=== PATIENT | male | born 1965 | race Caucasian/White ===

== ENCOUNTER 2018-07-23 22:31 | Inpatient (IN) ==
[2018-07-24 00:14] LABS: Bilirubin,Urine Negative (Negative); Blood,Urine Negative (Negative); Clarity,Urine Clear (Clear); Color,Urine Red (Yellow); Glucose,Urine (UA) >=1000 mg/dL (Normal); Ketones,Urine Negative (Negative); Leukocyte Esterase,Urine Negative (Negative); Nitrite,Urine Negative (Negative); Protein,Urine 30 mg/dL (Neg-Trace); Specific Gravity,Urine > 1.030 (1.010-1.025); Urobilinogen,Urine Normal (Normal)
[2018-07-24 00:16] LABS: Bacteria,Urine None Seen per hpf (None-Few); Hyaline Casts,Urine None Seen per lpf (None-Few); RBC,Urine 0-3 per hpf (0-3); Squamous Epithelial Cell,Urine Few per lpf (None-Few); WBC,Urine 0-3 per hpf (0-3)
[2018-07-24 00:17] LABS: Basophils % 0.2 %; Eosinophils # 0.2 K/mcL (0.0-0.6); Eosinophils % 1.1 %; Hematocrit 41.3 % (37.5-50.1); Hemoglobin 14.1 g/dL (12.9-16.9); Immature Granulocytes % 0.3 % (0-4); Lymphocytes # 2.4 K/mcL (0.6-4.6); Lymphocytes % 16.7 %; Mean Corpuscular HGB Conc 34.1 g/dL (31.6-35.5); Mean Corpuscular Hemoglobin 28.4 pg (28.0-33.3); Mean Corpuscular Volume 83.3 fL (83.0-100.0); Mean Platelet Volume 10.7 fL (9.4-12.4); Monocytes # 0.8 K/mcL (0.0-1.3); Monocytes % 5.3 %; Neutrophils # 10.8 K/mcL (1.6-8.9); Platelet Count 245 K/mcL (140-400); Red Blood Count 4.96 M/mcL (4.19-5.50); Red Cell Distribution Width 13.2 % (11.5-14.5); Segmented Neutrophils % 76.4 %
[2018-07-24] MEDS ORDERED: 0.9 % Sodium Chloride 1,000 ML IVC ONE (00:57)
[2018-07-24] MEDS ORDERED: Ondansetron 4 MG/2 ML VIAL IVP ONE (00:57)
[2018-07-24] MEDS ORDERED: *HR* FentaNYL (PF) 100 MCG/2 ML VIAL IVP ONE (00:57)
--- NOTE | 2018-07-24 01:01 | Emergency Department Note ---
Disposition Clinical Impression: Acute pancreatitis Qualifiers: Pancreatitis type: unspecified pancreatitis type Acute pancreatitis complication: unspecified Qualified Code(s): K85.90 - Acute pancreatitis without necrosis or infection, unspecified Disposition: Admitted As Inpatient Condition: Undetermined Time of Disposition: 03:37 Abdominal Pain HPI - General Chief Complaint: ED Abdominal Pain Stated Complaint: abdominal pain Time Seen by Provider: 07/24/18 00:45 Source: patient Mode of arrival: ambulatory Limitations: no limitations Nursing Notes Reviewed: Yes Vital Signs Reviewed: Yes - History of Present Illness HPI Narrative: 52-year-old male with history of high blood pressure arrives to the emergency department with complaint of epigastric discomfort nausea and vomiting and states that it feels as though a burning sensation at times it is stabbing. It is nonradiating. Patient states he never had anything like this in the past. No previous abdominal surgeries. Patient denies any recent surgeries. Patient denies any chest pain or difficulty breathing. No diarrhea, no melena, hematochezia. Patient is uncomfortable on evaluation. Denies any other complaints at this time. Pain Scale: 6 - Related Data Home Medications Medication Instructions Recorded Confirmed Lisinopril [Zestril] 40 mg PO BID 07/24/18 07/24/18 Metoprolol [Lopressor] 200 mg PO BID 07/24/18 07/24/18 Allergies Allergy/AdvReac Type Severity Reaction Status Date / Time No Known Allergies Allergy Verified 07/23/18 23:47 All systems ED: reviewed and negative except as stated. Constitutional: Denies: fever, chills, weakness ENT ED: Denies: dysphagia Cardiovascular: Denies: chest pain Respiratory: Denies: dyspnea Gastrointestinal: Reports: abdominal pain, nausea, vomiting. Denies: diarrhea, constipation, hematemesis, melena, hematochezia Genitourinary: Denies: urgency, dysuria Musculoskeletal: Denies: back pain Integumentary: Denies: rash Neurological: Denies: headache Abdominal Pain PMH - Past Medical History Medical history: Reports: hypertension Male Surgical History: Reports: non-contributory Psychiatric history: Reports: no psych history - Social History Smoking status: Current every day smoker Alcohol use: Reports: none Drug use: Reports: none Physical Exam - General Limitations: no limitations General appearance: alert, in no apparent distress - Head Head exam: atraumatic, normocephalic, normal inspection - Eye Eye exam: Present: normal appearance, PERRL, EOMI - ENT ENT exam: normal exam, normal oropharynx, mucous membranes moist - Neck Neck exam: Present: normal inspection, full ROM, trachea midline - Chest Chest inspection: Present: normal inspection, symmetric chest wall rise - Respiratory Respiratory exam: Present: normal lung sounds bilaterally - Cardiovascular Cardiovascular exam: Present: normal rhythm, tachycardia, normal heart sounds - Abdominal Exam Abdominal exam: Present: soft, tenderness. Absent: distention, guarding, rebound, rigidity, Du's sign, Rovsing's sign, tenderness at McBurney's Point - Extremities Exam Extremities exam: Present: normal inspection, full ROM. Absent: tenderness, pedal edema - Neurological Exam Neurological exam: Present: alert, oriented X3 - Skin Skin exam: Present: warm, dry, intact, normal color Course Vital Signs Temperature 98.2 F 07/23/18 23:01 Pulse Rate 107 07/23/18 23:01 Respiratory Rate 20 07/23/18 23:01 Blood Pressure 164/105 07/23/18 23:01 O2 Sat by Pulse Oximetry 98 07/23/18 23:01 Temperature 98.2 F 07/23/18 23:01 Pulse Rate 106 07/24/18 02:20 Respiratory Rate 18 07/24/18 02:20 Blood Pressure 193/126 07/24/18 02:20 O2 Sat by Pulse Oximetry 96 07/24/18 02:20 Oxygen Delivery Oxygen Delivery Room Air Abdominal Pain - MDM Narrative Medical decision making narrative: Patient's evaluation in the emergency department demonstrates findings consistent with a pancreatitis. Patient states is never had anything like this in the past. The patient's lipase is greater than [address] scan confirms pancreatitis. No pseudocyst noted. The patient has no previous history of alcohol abuse and states that he does not drink alcohol. The patient denies any previous history of high triglycerides, new medications or history of gallstones. The patient has his nausea and pain controlled at this time. His BISAP score is 1. He will be admitted to the hospital. Patient accepted by Dr. Weston. - Lab Data Lab results reviewed: Yes I reviewed the patient's lab results. Result diagrams: 07/24/18 00:04 07/24/18 00:04 Lab Results 07/24/18 07/24/18 07/24/18 Range/Units 00:00 00:04 00:04 WBC 14.1 H (4.3-11.1) K/mcL RBC 4.96 (4.19-5.50) M/mcL Hgb 14.1 (12.9-16.9) g/dL Hct 41.3 (37.5-50.1) % MCV 83.3 (83.0-100.0) fL MCH 28.4 (28.0-33.3) pg MCHC 34.1 (31.6-35.5) g/dL RDW 13.2 (11.5-14.5) % Plt Count 245 (140-400) K/mcL MPV 10.7 (9.4-12.4) fL Immature Gran % 0.3 (0-4) % Seg Neutrophils % 76.4 % Lymphocytes % 16.7 % Monocytes % 5.3 % Eosinophils % 1.1 % Basophils % 0.2 % Neutrophils # 10.8 H (1.6-8.9) K/mcL Lymphocytes # 2.4 (0.6-4.6) K/mcL Monocytes # 0.8 (0.0-1.3) K/mcL Eosinophils # 0.2 (0.0-0.6) K/mcL Basophils # 0.0 (0.0-0.2) K/mcL Sodium 134 L (136-145) mEq/L Potassium 3.9 (3.5-5.1) mEq/L Chloride 100 (98-107) mEq/L Carbon Dioxide 25 (23-29) mEq/L BUN 12 (6-20) mg/dL Creatinine 0.98 (0.70-1.30) mg/dL Est GFR ( Amer) > 60 (> 60) Est GFR (Non-Af Amer) > 60 (> 60) BUN/Creatinine Ratio 12 (6-26) Glucose 256 H (70-105) mg/dL Calculated Osmolality 287 (280-300) Calcium 9.4 (8.6-10.3) mg/dL Total Bilirubin 0.5 (0.3-1.0) mg/dL Direct Bilirubin 0.1 (0.0-0.2) mg/dL Indirect Bilirubin 0.4 (0.0-1.2) mg/dL AST 16 (13-39) Units/L ALT 21 (7-52) Units/L Alkaline Phosphatase 64 (34-104) Units/L Serum Total Protein 7.6 (6.4-8.9) g/dL Albumin 3.9 (3.5-5.7) g/dL Globulin 3.7 H (2.4-3.5) g/dL Albumin/Globulin Ratio 1.1 (1.1-2.2) Amylase 275 H (29-103) Units/L Lipase > 1800 H (11-82) Units/L Urine Color Red A (Yellow) Urine Clarity Clear (Clear) Urine pH 6.0 (5.0-8.0) pH Units Ur Specific Omega > 1.030 H (1.010-1.025) Urine Protein 30 H (Neg-Trace) mg/dL Urine Glucose (UA) >=1000 H (Normal) mg/dL Urine Ketones Negative (Negative) mg/dL Urine Blood Negative (Negative) Urine Nitrite Negative (Negative) Urine Bilirubin Negative (Negative) Urine Urobilinogen Normal (Normal) mg/dL Ur Leukocyte Esterase Negative (Negative) Urine Microscopic RBC 0-3 (0-3) per hpf Urine Microscopic WBC 0-3 (0-3) per hpf Ur Squamous Epith Cells Few (None-Few) per lpf Urine Bacteria None Seen (None-Few) per hpf Hyaline Casts None Seen (None-Few) per lpf Ur Culture Indicated? NO (NO) - Radiology Data Radiology results reviewed: Yes I reviewed the patient's radiology results. Abdomen/Pelvis CT 07/24/18 00:57 IMPRESSION: Mild diffuse inflammation surrounding the pancreas which is enlarged. These changes are compatible with acute pancreatitis. No pseudocyst is identified Small nonobstructive left renal calculus D/ / Kyler Otero MD / Kyler Otero MD Interpreting Provider: Kyler Otero MD Attestation Statement - Attestation Attestation: Dr. Anna note: Patient was seen in conjunction with resident Dr. Giacomo Salmon, please see his charting for complete documentation. Assessment [id number] time with the patient and agree with patient's treatment and disposition. Pain for [address] scan results reviewed. Denies alcoholism
[2018-07-24 01:19] LABS: Alanine Aminotransferase 21 Units/L (7-52); Albumin 3.9 g/dL (3.5-5.7); Albumin/Globulin Ratio 1.1 (1.1-2.2); Alkaline Phosphatase 64 Units/L (34-104); Amylase 275 Units/L (29-103); Aspartate Amino Transferase 16 Units/L (13-39); BUN/Creatinine Ratio 12 (6-26); Bilirubin,Direct 0.1 mg/dL (0.0-0.2); Bilirubin,Indirect 0.4 mg/dL (0.0-1.2); Bilirubin,Total 0.5 mg/dL (0.3-1.0); Blood Urea Nitrogen 12 mg/dL (6-20); Calcium 9.4 mg/dL (8.6-10.3); Carbon Dioxide 25 mEq/L (23-29); Chloride 100 mEq/L (98-107); Globulin 3.7 g/dL (2.4-3.5); Glucose 256 mg/dL (70-105); Lipase > 1800 Units/L (11-82); Osmolality,Calculated 287 (280-300); Potassium 3.9 mEq/L (3.5-5.1); Sodium 134 mEq/L (136-145); Total Protein 7.6 g/dL (6.4-8.9); eGFR For Non-African Americans > 60 (> 60)
[2018-07-24] MEDS ORDERED: *HR* FentaNYL (PF) 100 MCG/2 ML VIAL IVP PRN (04:28)
[2018-07-24] MEDS: *HR* Promethazine 25 MG/ML VIAL IVP PRN ×2 (04:42→22:29)
[2018-07-24] MEDS: Pantoprazole 40 MG VIAL IVP SCH ×2 (04:48→17:21)
--- NOTE | 2018-07-24 08:07 | Internal Med History&Physical ---
Date of Encounter: 07/24/18 Time of Encounter: 11:00 Internal Medicine - H&P: HPI Chief complaint: epigastric pain History of present illness: Mr. Decker is a 52 year old male pmhx htn , tobacco dependence who presented to ED with epigastric pain, n,v. Lipase >1800, CT scan with acute pancreatitis. I attempted numerous times to see him this morning but he was gone for imaging and in the shower. awake, pleasant, pain well controlled, overall nausea and pain improved with meds. bp at bedside 130/80. no chow, vision changes, cp, pressure sob or palpitations. epigastric pain currently mild and improved with nothing to eat/drink and meds. He denies etoh use, abnormal lipid panels in past, no new meds and no history of gallstones. discussed lab and imaging results with him. all questioned answered. GI will see him in consult for HM and steatosis in setting of acute pancreatitis uk etiology. gen- no weight changes, nightsweats, fevers or chills resp- no sob, cough, wheeing, orthopnea, pnd cv- no cp, pressure palpitations, presyncope, syncope, le edema Past Med Surg Social Fam HX - Past Medical History Medical history: hypertension Psychiatric history: no psych history - Past Surgical History Surgical History: non-contributory Additional surgical history: reviewed and non contributory - Social History Smoking Status: Current every day smoker Smokeless Tobacco Status: No Alcohol use: none Drug use: none - Additional Family History Additional family history: reviewed and non contributory Internal Medicine - H&P: Meds Lisinopril [Zestril] 40 mg PO BID 07/24/18 [History] Metoprolol [Lopressor] 200 mg PO BID 07/24/18 [History] Allergy/AdvReac Type Severity Reaction Status Date / Time No Known Allergies Allergy Verified 07/23/18 23:47 All Systems PM: A 10-system review of systems was performed and is negative for pertinent findings except as documented above in the HPI. - Constitutional Vitals: Temp Pulse Resp BP Pulse Ox 98.4 F 102 20 193/123 96 07/24/18 07:30 07/24/18 07:30 07/24/18 07:30 07/24/18 07:30 07/24/18 07:30 Exam: General: awake, alert, appears stated age, obese HEENT:EOM intact, pupils equal, round, no scleral icterus, moist mucus membranes Neck: supple, trachea midline Cardiovascular:regular rate and rhythm, normal S1 & S2, no rubs, murmurs or gallops. No JVD. no lower extremity edema Lungs:Normal breath sounds, no wheezes, or crackles. Normal respiratory effort on ra Abdomen:Soft, non-tender, non-distended, no rigidity, + bowel sounds Neurological: AAOx3, CN grossly intact Skin:Normal color, no rash, no pallor, no jaundice Internal Med - H&P Results - Labs CBC & Chem 7: 07/24/18 08:50 07/24/18 08:50 Labs: Short CBC 07/24/18 Range/Units 00:04 WBC 14.1 H (4.3-11.1) K/mcL Hgb 14.1 (12.9-16.9) g/dL Hct 41.3 (37.5-50.1) % Plt Count 245 (140-400) K/mcL Neutrophils # 10.8 H (1.6-8.9) K/mcL BMP 07/24/18 00:04 Sodium 134 L Potassium 3.9 Chloride 100 Carbon Dioxide 25 BUN 12 Creatinine 0.98 Glucose 256 H Calcium 9.4 Liver Function 07/24/18 Range/Units 00:04 Total Bilirubin 0.5 (0.3-1.0) mg/dL Direct Bilirubin 0.1 (0.0-0.2) mg/dL AST 16 (13-39) Units/L ALT 21 (7-52) Units/L Alkaline Phosphatase 64 (34-104) Units/L Albumin 3.9 (3.5-5.7) g/dL Urine 07/24/18 Range/Units 00:00 Urine Color Red A (Yellow) Urine Clarity Clear (Clear) Urine pH 6.0 (5.0-8.0) pH Units Ur Specific [place] > 1.030 H (1.010-1.025) Urine Protein 30 H (Neg-Trace) mg/dL Urine Glucose (UA) >=1000 H (Normal) mg/dL - Impressions ITS Impressions Abdomen/Pelvis CT 07/24/18 00:57 IMPRESSION: Mild diffuse inflammation surrounding the pancreas which is enlarged. These changes are compatible with acute pancreatitis. No pseudocyst is identified Small nonobstructive left renal calculus D/ / Kyler Otero MD / Kyler Otero MD Interpreting Provider: Kyler Otero MD - Assessment and Plan (1) Acute pancreatitis Current Visit: Yes Status: Acute Assessment and plan: First episode pancreatitis Denies etoh use, new meds, gallstone history or high triglycerides CT a/p with acute pancreatitis no pseudocyst, no necrosis noted -IVF boluses in addition to 1L given in ED -then MIVF -keep npo -prn pain medication IV, prn anti emetics -check RUQ US--HM and steatosis ducts normal no stones - lipids, etoh level--unremarkable -trend amylase/lipase -gi consulted Qualifiers: Pancreatitis type: unspecified pancreatitis type Acute pancreatitis complication: no infection or necrosis Qualified Code(s): K85.90 - Acute pancreatitis without necrosis or infection, unspecified (2) Hypertension Current Visit: Yes Status: Acute Assessment and plan: Uncontrolled here, likely confounded by pain Home oral meds are lopressor 200 mg BID and Lisinopril 40 mg BID -anticipate will have hard time controlling BP with pain and high rate fluids -begin with IV lopressor 5 mg q 8h with close monitoring, IV pain control, may need to add additional prn IV anti hypertensive -will require fu with pcp on dc Qualifiers: Hypertension type: essential hypertension Qualified Code(s): I10 - Essential (primary) hypertension (3) Leukocytosis Current Visit: Yes Status: Acute Assessment and plan: WBC [address] A/P with pancreatitis and no other infectious etiology noted for abd pain, n/v May be stress reaction -check UA, CXR elizabeth given emesis, if develops fever will check bl cxs -cont to monitor wbc and for fevers Qualifiers: Leukocytosis type: unspecified Qualified Code(s): D72.829 - Elevated white blood cell count, unspecified (4) Tachycardia Current Visit: Yes Status: Acute Assessment and plan: Sinus tachycardia likely related to pain, intermittent, currently resolved EKG with NSR, tWI III and Avf, no prior to compare -cont lopressor as above and IVF and pain control, monitor electrolytes -given elevated BPs and TWIs on ekg will trend trops, pt without cp, pressure, sob or palpitations -cont tele (5) Tobacco dependence Current Visit: Yes Status: Acute Assessment and plan: cessation education patch as needed (6) Hyperglycemia Current Visit: Yes Status: Acute Assessment and plan: No history of DM Likely related to pancreatitis -check A1C--8.1 SSI and accu checks, prn hypoglycemics -diet and lifestyle modification education provided, will need pcp fu (7) Morbid obesity with BMI of 40.0-44.9, adult Current Visit: Yes Status: Acute Assessment and plan: diet and lifestyle modifications - Time Spent With Patient Total time spent is greater than 50% in coordination of care (as documented) at patient's floor/unit and/or counseling patient: Greater than 35 minutes
[2018-07-24] MEDS ORDERED: Ringers Solution, Lactated 1,000 ML IVC ONE ×2 (08:14→08:15)
[2018-07-24] MEDS ORDERED: Naloxone 0.4 MG/ML INJ IVP PRN (08:26)
[2018-07-24] MEDS ORDERED: *HR* Dextrose 50 % in Water (Syg) 50 ML SYRINGE IVP PRN (08:27)
[2018-07-24] MEDS ORDERED: Dextrose Gel 15 GM/37.5 ML TUBE PO PRN ×2 (08:27)
[2018-07-24] MEDS ORDERED: D5% in Water 1,000 ML IVC PRN (08:27)
[2018-07-24] MEDS: 0.9 % Sodium Chloride 1,000 ML IVC SCH ×3 (08:39→23:43)
[2018-07-24] MEDS: *HR* Metoprolol 5 MG/5 ML VIAL IVP SCH ×3 (08:53→23:40)
[2018-07-24 09:04] LABS: Basophils % 0.2 %; Eosinophils # 0.1 K/mcL (0.0-0.6); Eosinophils % 0.8 %; Hematocrit 39.6 % (37.5-50.1); Hemoglobin 13.2 g/dL (12.9-16.9); Immature Granulocytes % 0.3 % (0-4); Lymphocytes # 2.2 K/mcL (0.6-4.6); Lymphocytes % 16.1 %; Mean Corpuscular HGB Conc 33.3 g/dL (31.6-35.5); Mean Corpuscular Hemoglobin 28.3 pg (28.0-33.3); Mean Platelet Volume 10.6 fL (9.4-12.4); Monocytes # 0.8 K/mcL (0.0-1.3); Monocytes % 5.8 %; Neutrophils # 10.4 K/mcL (1.6-8.9); Platelet Count 230 K/mcL (140-400); Red Blood Count 4.66 M/mcL (4.19-5.50); Red Cell Distribution Width 13.2 % (11.5-14.5); Segmented Neutrophils % 76.8 %
[2018-07-24 09:17] LABS: Estimated Average Glucose 186 mg/dl; Hemoglobin A1C 8.1 %
[2018-07-24] MEDS: *HR* FentaNYL (PF) 100 MCG/2 ML VIAL IVP PRN ×2 (10:00→20:59)
[2018-07-24] MEDS: *HR* Heparin 5,000 UNIT/ML VIAL SQ SCH ×3 (10:05→22:30)
[2018-07-24 10:07] LABS: Alanine Aminotransferase 19 Units/L (7-52); Albumin 3.7 g/dL (3.5-5.7); Albumin/Globulin Ratio 1.1 (1.1-2.2); Alkaline Phosphatase 61 Units/L (34-104); Aspartate Amino Transferase 14 Units/L (13-39); BUN/Creatinine Ratio 12 (6-26); Bilirubin,Total 0.5 mg/dL (0.3-1.0); Blood Urea Nitrogen 11 mg/dL (6-20); Carbon Dioxide 25 mEq/L (23-29); Chloride 103 mEq/L (98-107); Chol/HDL Ratio 4.6 (0-4.9); Cholesterol 119 mg/dL (< 200); Globulin 3.3 g/dL (2.4-3.5); Glucose 194 mg/dL (70-105); HDL Cholesterol 26 mg/dL (40-59); LDL Cholesterol,Calculated 73 mg/dL (0-99); Lipase > 1800 Units/L (11-82); Osmolality,Calculated 289 (280-300); Potassium 4.1 mEq/L (3.5-5.1); Sodium 137 mEq/L (136-145); Triglycerides 98 mg/dL (< 150); eGFR For Non-African Americans > 60 (> 60)
--- NOTE | 2018-07-24 12:12 | Gastroenterology Consult Note ---
<Lia Guido - Last Filed: 07/24/18 12:09> Date of Encounter: 07/24/18 Time of Encounter: 11:50 - Assessment and plan (1) Acute pancreatitis Current Visit: Yes Status: Acute Assessment and plan: Pt presents with acute pancreatitis. He denies any prior episodes in the past, he denies alcohol intake. US is negative for gallstones or CBD dilation. Will order workup to rule out autoimmune pancreatitis. Qualifiers: Pancreatitis type: unspecified pancreatitis type Acute pancreatitis complication: no infection or necrosis Qualified Code(s): K85.90 - Acute pancreatitis without necrosis or infection, unspecified (2) Hepatic steatosis Current Visit: Yes Status: Acute Assessment and plan: Us shows fatty liver, likely due to obesity. Will order lab workup, can follow up as an outpatient. (3) Morbid obesity with BMI of 40.0-44.9, adult Current Visit: Yes Status: Acute - Time Spent With Patient Total time spent is greater than 50% in coordination of care (as documented) at patient's floor/unit and/or counseling patient: GI History of Present Illness - Data of Consult Patient: new to practice Consult date: 07/24/18 Requesting Physician: Tacos Weston MD - Consult Narrative Reason for consult: acute pancreatitis History of present illness: Mr. Decker is a 52 year old male pmhx htn , and tobacco dependence who presented to ED with epigastric pain, nausea and vomiting. He admits to epigastric pain for the past 3-4 days. Nausea and vomiting worse after he eats. He reports frequent loose stools which is normal for him. He denies any melena or hem atochezia. He reports family history of father with pancreatitis. Lipase >1800, CT scan with acute pancreatitis. He denies etoh use, abnormal lipid panels in past, no new meds and no history of gallstones. procedures: denies anticoagulants: denies nsaids: asa 81 mg daily Past Med Surg Social Fam HX - Past Medical History Medical history: hypertension Psychiatric history: no psych history - Past Surgical History Surgical History: non-contributory Additional surgical history: reviewed and non contributory - Social History Smoking Status: Current every day smoker Smokeless Tobacco Status: No Alcohol use: none Drug use: none Review of Systems: GI: as per INAJA GENERAL: denies fever, has some chills EYES: denies yellow discoloration ENT: denies pain with swallowing or difficulty swallowing CARDIO: denies chest pain, palpitations RESP: No Shortness of breath with exertion : denies change in color of urine NEURO: denies any weakness HEME: Denies any bruising MS: denies joint pain, joint swelling or back pain. DERM: denies rash or itching PSYCH: Denies history of anxiety or depression - Constitutional Vitals: Temp Pulse Resp BP Pulse Ox 98.0 F 96 18 130/80 97 07/24/18 12:01 07/24/18 12:01 07/24/18 12:01 07/24/18 12:01 07/24/18 12:01 Exam: CONSTITUTIONAL:alert, no acute distress.HEAD:normocephalic.EYES:no jaundice.NECK:no obvious swelling.HEART:regular rate and rhythm, no murmurs.LUNGS:bilateral good air entry.ABDOMEN:non distended, soft, tender to epigastric area, no masses palpable, no organomegaly.RECTAL EXAM:Deferred.EXTREMITIES:no clubbing, cyanosis or edema, obese.SKIN:no stigmata of chronic liver disease.NEUROLOGIC:no obvious focal defect. Results - Labs CBC & Chem 7: 07/24/18 08:50 07/24/18 08:50 Labs: Last Result Calcium 9.0 mg/dL (8.6-10.3) 07/24/18 08:50 Triglycerides 98 mg/dL (< 150) 07/24/18 08:50 Entire Visit Hgb 13.2 g/dL (12.9-16.9) 07/24/18 08:50 Hct 39.6 % (37.5-50.1) 07/24/18 08:50 Total Bilirubin 0.5 mg/dL (0.3-1.0) 07/24/18 08:50 AST 14 Units/L (13-39) 07/24/18 08:50 ALT 19 Units/L (7-52) 07/24/18 08:50 Amylase 249 Units/L (29-103) H 07/24/18 08:50 Lipase > 1800 Units/L (11-82) H 07/24/18 08:50 - Impressions Impressions Abdomen/Pelvis CT 07/24/18 00:57 IMPRESSION: Mild diffuse inflammation surrounding the pancreas which is enlarged. These changes are compatible with acute pancreatitis. No pseudocyst is identified Small nonobstructive left renal calculus D/ / Kyler Otero MD / Kyler Otero MD Interpreting Provider: Kyler Otero MD Chest X-Ray 07/24/18 08:23 IMPRESSION: No acute cardiopulmonary process. D/ / Pollo Cote MD / Pollo Cote MD Interpreting Provider: Pollo Cote MD Liver Ultrasound 07/24/18 09:00 IMPRESSION: 1. No cholelithiasis. Normal common bile duct measuring 3 mm. 2. Hepatomegaly with steatosis. D/ / 07/24/2018 09:58:47 Ania Cervantes MD / ty Interpreting Provider: Ania Cervantes MD Consult Discharge Plan - Plan Referrals: NONE,PCP [Primary Care Provider] - <Caleb Ly - Last Filed: 07/24/18 14:22> Date of Encounter: 07/24/18 Time of Encounter: 13:00 - Time Spent With Patient Total time spent is greater than 50% in coordination of care (as documented) at patient's floor/unit and/or counseling patient: GI History of Present Illness - Data of Consult Requesting Physician: Tacos Weston MD - Consult Narrative History of present illness: Mr. Decker is a 52 year old male - Constitutional Vitals: Temp Pulse Resp BP Pulse Ox 98.0 F 96 18 130/80 97 07/24/18 12:01 07/24/18 12:01 07/24/18 12:01 07/24/18 12:01 07/24/18 12:01 Results - Labs CBC & Chem 7: 07/24/18 08:50 07/24/18 08:50 Labs: Last Result Calcium 9.0 mg/dL (8.6-10.3) 07/24/18 08:50 Iron 31 mcg/dL (65-175) L 07/24/18 12:37 % Saturation 9 % (20-55) L 07/24/18 12:37 Transferrin 243 mg/dL (203-362) 07/24/18 12:37 Ferritin 187 ng/mL (20-250) 07/24/18 12:37 Troponin I 0.03 ng/mL (< 0.04) 07/24/18 12:37 Triglycerides 98 mg/dL (< 150) 07/24/18 08:50 Entire Visit Hgb 13.2 g/dL (12.9-16.9) 07/24/18 08:50 Hct 39.6 % (37.5-50.1) 07/24/18 08:50 PT 13.5 Seconds (9.4-12.1) H 07/24/18 12:37 Ferritin 187 ng/mL (20-250) 07/24/18 12:37 Total Bilirubin 0.5 mg/dL (0.3-1.0) 07/24/18 08:50 AST 14 Units/L (13-39) 07/24/18 08:50 ALT 19 Units/L (7-52) 07/24/18 08:50 Amylase 249 Units/L (29-103) H 07/24/18 08:50 Lipase > 1800 Units/L (11-82) H 07/24/18 08:50 - ABG ABG results: PT/INR, D-dimer PT 13.5 Seconds (9.4-12.1) H 07/24/18 12:37 - Impressions Impressions Abdomen/Pelvis CT 07/24/18 00:57 IMPRESSION: Mild diffuse inflammation surrounding the pancreas which is enlarged. These changes are compatible with acute pancreatitis. No pseudocyst is identified Small nonobstructive left renal calculus D/ / Kyler Otero MD / Kyler Otero MD Interpreting Provider: Kyler Otero MD Chest X-Ray 07/24/18 08:23 IMPRESSION: No acute cardiopulmonary process. D/ / Pollo Cote MD / Pollo Cote MD Interpreting Provider: Pollo Cote MD Liver Ultrasound 07/24/18 09:00 IMPRESSION: 1. No cholelithiasis. Normal common bile duct measuring 3 mm. 2. Hepatomegaly with steatosis. D/ / 07/24/2018 09:58:47 Ania Cervantes MD / [facility] Interpreting Provider: Ania Cervantes MD - Attending Attestation I have personally performed a face to face evaluation on this patient. I have reviewed and agree with the care plan. History and Exam by me shows: Patient seen per patient his abdominal pain is better now. On examination: Mild epigastric tenderness. Assessment: Patient with acute pancreatitis no history of drinking. GB ultrasound is negative. Rec: A full and pain management will check his triglyceride calcium and the IgG 4
[2018-07-24 13:29] LABS: Troponin I 0.03 ng/mL (< 0.04)
[2018-07-24 13:35] LABS: INR 1.2; Prothrombin Time 13.5 Seconds (9.4-12.1)
[2018-07-24 13:41] LABS: Hepatitis B Surface Antigen Nonreactive (Nonreactive)
[2018-07-24 14:10] LABS: Hepatitis A Antibody IgM Nonreactive (Nonreactive); Hepatitis B Core IgM Nonreactive (Nonreactive); Hepatitis C Virus Antibody Nonreactive (Nonreactive)
[2018-07-24] MEDS: Insulin LISPRO 300 UNITS/3 ML VIAL SQ SCH ×3 (14:44→23:35)
[2018-07-25] MEDS: Pantoprazole 40 MG VIAL IVP SCH ×2 (05:22→16:54)
[2018-07-25] MEDS: *HR* Heparin 5,000 UNIT/ML VIAL SQ SCH ×3 (05:25→21:16)
[2018-07-25] MEDS: Insulin LISPRO 300 UNITS/3 ML VIAL SQ SCH ×3 (06:23→16:39)
[2018-07-25] MEDS: *HR* Metoprolol 5 MG/5 ML VIAL IVP SCH (07:44)
[2018-07-25] MEDS: Loperamide 1 MG/5 ML UDC PO PRN ×2 (07:44→21:16)
[2018-07-25 08:32] LABS: Basophils % 0.2 %; Eosinophils # 0.2 K/mcL (0.0-0.6); Eosinophils % 1.5 %; Hematocrit 40.2 % (37.5-50.1); Hemoglobin 13.3 g/dL (12.9-16.9); Immature Granulocytes % 0.4 % (0-4); Lymphocytes % 16.4 %; Mean Corpuscular HGB Conc 33.1 g/dL (31.6-35.5); Mean Corpuscular Hemoglobin 28.4 pg (28.0-33.3); Mean Corpuscular Volume 85.7 fL (83.0-100.0); Mean Platelet Volume 10.8 fL (9.4-12.4); Monocytes # 0.7 K/mcL (0.0-1.3); Monocytes % 5.8 %; Neutrophils # 9.3 K/mcL (1.6-8.9); Platelet Count 245 K/mcL (140-400); Red Blood Count 4.69 M/mcL (4.19-5.50); Red Cell Distribution Width 13.1 % (11.5-14.5); Segmented Neutrophils % 75.7 %
[2018-07-25 08:58] LABS: Alanine Aminotransferase 18 Units/L (7-52); Albumin 3.8 g/dL (3.5-5.7); Albumin/Globulin Ratio 1.1 (1.1-2.2); Alkaline Phosphatase 60 Units/L (34-104); Aspartate Amino Transferase 16 Units/L (13-39); BUN/Creatinine Ratio 10 (6-26); Bilirubin,Total 0.7 mg/dL (0.3-1.0); Blood Urea Nitrogen 9 mg/dL (6-20); Calcium 9.1 mg/dL (8.6-10.3); Carbon Dioxide 23 mEq/L (23-29); Chloride 101 mEq/L (98-107); Globulin 3.4 g/dL (2.4-3.5); Glucose 142 mg/dL (70-105); Magnesium 1.9 mg/dL (1.6-2.6); Osmolality,Calculated 283 (280-300); Potassium 3.7 mEq/L (3.5-5.1); Sodium 136 mEq/L (136-145); Total Protein 7.2 g/dL (6.4-8.9); eGFR For Non-African Americans > 60 (> 60)
[2018-07-25 09:14] LABS: Amylase 142 Units/L (29-103); Lipase 1135 Units/L (11-82)
--- NOTE | 2018-07-25 09:27 | Internal Med Progress Note ---
Hospitalist Progress Note - Encounter Date of Encounter: 07/25/18 Time of Encounter: 10:45 - Subjective Interval History: awake, pleasant, + nausea, no emesis. abd pain is overall improved, tolerable with pain meds, taking meds less frequently. he has chronci diarrhea and takes imodium at the instruction of his home ([place]) physicians. His diarrhea is pr esent and at baseline. no fevers, chills - Exam Vitals: Temp Pulse Resp BP Pulse Ox 97.9 F 112 18 140/90 95 07/25/18 07:00 07/25/18 07:00 07/25/18 07:00 07/25/18 07:00 07/25/18 07:00 Exam: General: awake, alert, appears stated age, obese HEENT: pupils equal, round, no scleral icterus, moist mucus membranes Cardiovascular:regular rate and rhythm, normal S1 & S2, no lower extremity edema Lungs:Normal breath sounds, no wheezes, or crackles. Normal respiratory effort on ra Abdomen:Soft, non-tender, non-distended, no rigidity, + bowel sounds Neurological: AAOx3 Skin:Normal color, no rash, no jaundice - Assessment and Plan (1) Acute pancreatitis Current Visit: Yes Status: Acute Assessment and Plan: First episode pancreatitis Denies etoh use, new meds, gallstone history or high triglycerides CT a/p with acute pancreatitis no pseudocyst, no necrosis noted RUQ US--HM and steatosis ducts normal no stones lipids, etoh level--unremarkable Lipase down trending lipase 1100s -increase MIVF andgive 500 cc bolus given his chronic diarrhea -keep npo -prn pain medication IV, prn anti emetics -trend amylase/lipase -gi consulted and autoimmune work up pending -he will ahve to have his PCP in [place] refer him to GI and obtain [facility] records at discharge (2) Hypertension Current Visit: Yes Status: Acute Assessment and Plan: Uncontrolled here, likely confounded by pain Home oral meds are lopressor 200 mg BID and Lisinopril 40 mg BID -unable to control BP to degree desired with IV meds, given his lipase is down trending and risk vs benefit of uncontrolled BP vs oral meds--will resume home regimen today and monitor -dc iv lopressor -will require fu with pcp on dc (3) Leukocytosis Current Visit: Yes Status: Acute Assessment and Plan: WBC 14 on admission, down trending CT A/P with pancreatitis and no other infectious etiology noted for abd pain, n/v UA without infection CXR neg Likely stress reaction -if develops fever will check bl cxs -cont to monitor wbc and for fevers (4) Tachycardia Current Visit: Yes Status: Acute Assessment and Plan: Sinus tachycardia likely related to pain, intermittent, currently resolved EKG with NSR, tWI III and Avf, no prior to compare -resume home dosing BB 200 mg BID, cont pain control, monitor electrolytes -given elevated BPs and TWIs on ekg trops were trended and negative- pt without cp, pressure, sob or palpitations -cont tele (5) Tobacco dependence Current Visit: Yes Status: Acute Assessment and Plan: cessation education patch as needed (6) Hyperglycemia Current Visit: Yes Status: Acute Assessment and Plan: No history of DM A1C--8.1 Likely DM , possibly complicated by pancreatitis -SSI and accu checks, prn hypoglycemics -diet and lifestyle modification education provided, will need pcp fu (7) Morbid obesity with BMI of 40.0-44.9, adult Current Visit: Yes Status: Acute Assessment and Plan: diet and lifestyle modifications (8) Chronic diarrhea Current Visit: Yes Status: Acute Assessment and Plan: Stable and at baseline -cont home prn imodium DVT Prophylaxis: hep sq - Time Spent with Patient Total time spent is greater than 50% in coordination of care (as documented) at patient's floor/unit and/or counseling patient: 25 - 35 minutes Plan of Care Discussed with: patient Internal Medicine: Result - Labs CBC & Chem 7: 07/25/18 08:01 07/25/18 08:01 Labs: Short CBC 07/25/18 Range/Units 08:01 WBC 12.3 H (4.3-11.1) K/mcL Hgb 13.3 (12.9-16.9) g/dL Hct 40.2 (37.5-50.1) % Plt Count 245 (140-400) K/mcL Neutrophils # 9.3 H (1.6-8.9) K/mcL BMP 07/24/18 07/25/18 08:50 08:01 Sodium 137 136 Potassium 4.1 3.7 Chloride 103 101 Carbon Dioxide 25 23 BUN 11 9 Creatinine 0.93 0.86 Glucose 194 H 142 H Calcium 9.0 9.1 Cardiac Enzymes 07/24/18 07/24/18 07/24/18 Range/Units 12:37 17:23 23:00 Troponin I 0.03 < 0.03 < 0.03 (< 0.04) ng/mL Liver Function 07/24/18 07/25/18 Range/Units 08:50 08:01 Total Bilirubin 0.5 0.7 (0.3-1.0) mg/dL AST 14 16 (13-39) Units/L ALT 19 18 (7-52) Units/L Alkaline Phosphatase 61 60 (34-104) Units/L Albumin 3.7 3.8 (3.5-5.7) g/dL - ABG Interpretation ABG results: PT/INR, D-dimer PT 13.5 Seconds (9.4-12.1) H 07/24/18 12:37 - Impressions Impressions Liver Ultrasound 07/24/18 09:00 IMPRESSION: 1. No cholelithiasis. Normal common bile duct measuring 3 mm. 2. Hepatomegaly with steatosis. D/ / 07/24/2018 09:58:47 Ania Cervantes MD / ty Interpreting Provider: Ania Cervantes MD Consult Discharge Plan - Plan Referrals: NONE,PCP [Primary Care Provider] - (1) Acute pancreatitis Qualifiers: Pancreatitis type: unspecified pancreatitis type Acute pancreatitis complication: no infection or necrosis Qualified Code(s): K85.90 - Acute pancreatitis without necrosis or infection, unspecified (2) Hypertension Qualifiers: Hypertension type: essential hypertension Qualified Code(s): I10 - Essential (primary) hypertension (3) Leukocytosis Qualifiers: Leukocytosis type: unspecified Qualified Code(s): D72.829 - Elevated white blood cell count, unspecified
[2018-07-25] MEDS ORDERED: 0.9 % Sodium Chloride 500 ML IVC ONE (11:49)
[2018-07-25] MEDS: Lisinopril 20 MG TABLET PO SCH ×2 (11:50→20:26)
[2018-07-25] MEDS: 0.9 % Sodium Chloride 1,000 ML IVC SCH (11:50)
[2018-07-25] MEDS: *HR* Promethazine 25 MG/ML VIAL IVP PRN ×2 (11:50→17:57)
[2018-07-25] MEDS: *HR* FentaNYL (PF) 100 MCG/2 ML VIAL IVP PRN (13:29)
[2018-07-25] MEDS: Metoprolol 100 MG TABLET PO SCH (20:26)
[2018-07-26] MEDS: Insulin LISPRO 300 UNITS/3 ML VIAL SQ SCH ×4 (01:03→17:14)
[2018-07-26] MEDS: *HR* FentaNYL (PF) 100 MCG/2 ML VIAL IVP PRN ×2 (01:14→06:25)
[2018-07-26] MEDS: *HR* Promethazine 25 MG/ML VIAL IVP PRN (01:19)
[2018-07-26] MEDS: Pantoprazole 40 MG VIAL IVP SCH ×2 (06:20→17:12)
[2018-07-26] MEDS: *HR* Heparin 5,000 UNIT/ML VIAL SQ SCH ×3 (06:27→20:26)
[2018-07-26 08:23] LABS: AFP Tumor Marker Non-Pregnant 2 ng/mL (0-9)
--- NOTE | 2018-07-26 08:58 | Electrocardiograph Report ---
[place] [id number] Test Date: 2018-07-24 Pat Name: Cruzito Decker Department: [id number] Room: 3A44 Gender: M Nursing Resident: : 1965 Requested By: Isela Escobedo Order Number: [id number] Reading MD: Maribell Alex Measurements Intervals [place] Rate: 99 P: 52 AL: 133 QRS: 14 QRSD: 78 T: -13 QT: 345 QTc: 443 Interpretive Statements Sinus rhythm Low voltage, precordial leads Abnormal R-wave progression, early transition Borderline T abnormalities, inferior leads Electronically Signed On 07-26-2018 8:56:31 EDT by Maribell Alex
[2018-07-26 09:04] LABS: Basophils % 0.3 %; Eosinophils # 0.2 K/mcL (0.0-0.6); Eosinophils % 1.5 %; Hematocrit 40.8 % (37.5-50.1); Hemoglobin 13.8 g/dL (12.9-16.9); Immature Granulocytes % 0.3 % (0-4); Lymphocytes # 1.9 K/mcL (0.6-4.6); Lymphocytes % 15.9 %; Mean Corpuscular HGB Conc 33.8 g/dL (31.6-35.5); Mean Corpuscular Hemoglobin 28.2 pg (28.0-33.3); Mean Corpuscular Volume 83.3 fL (83.0-100.0); Monocytes # 0.7 K/mcL (0.0-1.3); Monocytes % 5.8 %; Neutrophils # 8.9 K/mcL (1.6-8.9); Platelet Count 264 K/mcL (140-400); Red Cell Distribution Width 13.2 % (11.5-14.5); Segmented Neutrophils % 76.2 %
[2018-07-26] MEDS: Metoprolol 100 MG TABLET PO SCH ×2 (09:23→20:26)
[2018-07-26] MEDS: Lisinopril 20 MG TABLET PO SCH ×2 (09:23→20:26)
[2018-07-26 10:00] LABS: Alanine Aminotransferase 18 Units/L (7-52); Albumin 3.9 g/dL (3.5-5.7); Alkaline Phosphatase 63 Units/L (34-104); Aspartate Amino Transferase 17 Units/L (13-39); BUN/Creatinine Ratio 12 (6-26); Bilirubin,Total 0.7 mg/dL (0.3-1.0); Blood Urea Nitrogen 11 mg/dL (6-20); Carbon Dioxide 21 mEq/L (23-29); Chloride 101 mEq/L (98-107); Globulin 3.8 g/dL (2.4-3.5); Glucose 114 mg/dL (70-105); Lipase 919 Units/L (11-82); Osmolality,Calculated 286 (280-300); Potassium 3.7 mEq/L (3.5-5.1); Sodium 138 mEq/L (136-145); Total Protein 7.7 g/dL (6.4-8.9); eGFR For Non-African Americans > 60 (> 60)
--- NOTE | 2018-07-26 11:21 | Internal Med Progress Note ---
Hospitalist Progress Note - Encounter Date of Encounter: 07/26/18 Time of Encounter: 09:00 - Subjective Interval History: awake, tired and hungry. epigastric pain worse when lying flat and nausea then, no emesis. pain improves with sitting in chair upright. no fevers, chills. - Exam Vitals: Temp Pulse Resp BP Pulse Ox 98.8 F 102 16 144/94 93 07/26/18 05:47 07/26/18 09:22 07/26/18 05:47 07/26/18 09:22 07/26/18 05:47 Exam: General: awake, alert, appears stated age, obese HEENT: pupils equal, round, no scleral icterus Cardiovascular:regular rate and rhythm, normal S1 & S2, no lower extremity edema Lungs:Normal breath sounds, no wheezes, or crackles. Normal respiratory effort on ra Abdomen:Soft, non-tender, non-distended, + bowel sounds Neurological: AAOx3 Skin:Normal color, no jaundice - Assessment and Plan (1) Acute pancreatitis Current Visit: Yes Status: Acute Assessment and Plan: First episode pancreatitis Denies etoh use, new meds, gallstone history or high triglycerides CT a/p with acute pancreatitis no pseudocyst, no necrosis noted RUQ US--HM and steatosis ducts normal no stones lipids, etoh level--unremarkable Lipase down trending lipase 900s with cont pain and nausea -cont MIVF -sips water and ice chips -prn pain medication IV, prn anti emetics -trend lipase -gi consulted and autoimmune work up pending -he will have to have his PCP in [place] refer him to GI and obtain [facility] records at discharge (2) Hypertension Current Visit: Yes Status: Acute Assessment and Plan: Uncontrolled here, likely confounded by pain and needing to hold oral home meds initially Having high checks in last 4hrs after being up and walking Improved with morning meds this morning -cont home BB and ACEI, prn hydralazine -prn pain control -will require fu with pcp on dc (3) Leukocytosis Current Visit: Yes Status: Acute Assessment and Plan: WBC 14 on admission, down trending CT A/P with pancreatitis and no other infectious etiology noted for abd pain, n/v UA without infection CXR neg Likely stress reaction -if develops fever will check bl cxs -cont to monitor wbc and for fevers (4) Tachycardia Current Visit: Yes Status: Acute Assessment and Plan: Sinus tachycardia likely related to pain, intermittent, currently resolved EKG with NSR, tWI III and Avf, no prior to compare given elevated BPs and TWIs on ekg trops were trended and negative on admission- pt without cp, pressure, sob or palpitations - home dosing BB 200 mg BID, cont pain control, monitor electrolytes -cont tele (5) Tobacco dependence Current Visit: Yes Status: Acute Assessment and Plan: cessation education patch as needed (6) Hyperglycemia Current Visit: Yes Status: Acute Assessment and Plan: No history of DM A1C--8.1 Likely DM , possibly complicated by pancreatitis -SSI and accu checks, prn hypoglycemics -diet and lifestyle modification education provided, will need pcp fu (7) Morbid obesity with BMI of 40.0-44.9, adult Current Visit: Yes Status: Acute Assessment and Plan: diet and lifestyle modifications (8) Chronic diarrhea Current Visit: Yes Status: Acute Assessment and Plan: Stable and at baseline -cont home prn imodium DVT Prophylaxis: hep sq - Time Spent with Patient Total time spent is greater than 50% in coordination of care (as documented) at patient's floor/unit and/or counseling patient: Plan of Care Discussed with: patient Internal Medicine: Result - Labs CBC & Chem 7: 07/26/18 08:17 07/26/18 08:17 Labs: Short CBC 07/26/18 Range/Units 08:17 WBC 11.7 H (4.3-11.1) K/mcL Hgb 13.8 (12.9-16.9) g/dL Hct 40.8 (37.5-50.1) % Plt Count 264 (140-400) K/mcL Neutrophils # 8.9 (1.6-8.9) K/mcL BMP 07/26/18 08:17 Sodium 138 Potassium 3.7 Chloride 101 Carbon Dioxide 21 L BUN 11 Creatinine 0.89 Glucose 114 H Calcium 9.0 Liver Function 07/26/18 Range/Units 08:17 Total Bilirubin 0.7 (0.3-1.0) mg/dL AST 17 (13-39) Units/L ALT 18 (7-52) Units/L Alkaline Phosphatase 63 (34-104) Units/L Albumin 3.9 (3.5-5.7) g/dL - ABG Interpretation ABG results: PT/INR, D-dimer PT 13.5 Seconds (9.4-12.1) H 07/24/18 12:37 Consult Discharge Plan - Plan Referrals: NONE,PCP [Primary Care Provider] - (1) Acute pancreatitis Qualifiers: Pancreatitis type: unspecified pancreatitis type Acute pancreatitis complication: no infection or necrosis Qualified Code(s): K85.90 - Acute pancreatitis without necrosis or infection, unspecified (2) Hypertension Qualifiers: Hypertension type: essential hypertension Qualified Code(s): I10 - Essential (primary) hypertension (3) Leukocytosis Qualifiers: Leukocytosis type: unspecified Qualified Code(s): D72.829 - Elevated white blood cell count, unspecified
[2018-07-26] MEDS: 0.9 % Sodium Chloride 1,000 ML IVC SCH (17:12)
[2018-07-27] MEDS: 0.9 % Sodium Chloride 1,000 ML IVC SCH ×4 (00:47→20:02)
[2018-07-27] MEDS: Insulin LISPRO 300 UNITS/3 ML VIAL SQ SCH ×5 (00:48→20:02)
[2018-07-27] MEDS: *HR* FentaNYL (PF) 100 MCG/2 ML VIAL IVP PRN (00:50)
[2018-07-27] MEDS: *HR* Promethazine 25 MG/ML VIAL IVP PRN (03:07)
[2018-07-27] MEDS: Loperamide 1 MG/5 ML UDC PO PRN (03:07)
[2018-07-27 04:21] LABS: Basophils % 0.3 %; Eosinophils # 0.2 K/mcL (0.0-0.6); Eosinophils % 1.8 %; Hematocrit 41.1 % (37.5-50.1); Hemoglobin 13.4 g/dL (12.9-16.9); Immature Granulocytes % 0.4 % (0-4); Lymphocytes # 2.6 K/mcL (0.6-4.6); Lymphocytes % 21.3 %; Mean Corpuscular HGB Conc 32.6 g/dL (31.6-35.5); Mean Corpuscular Hemoglobin 28.2 pg (28.0-33.3); Mean Corpuscular Volume 86.5 fL (83.0-100.0); Mean Platelet Volume 10.7 fL (9.4-12.4); Monocytes # 0.6 K/mcL (0.0-1.3); Monocytes % 5.3 %; Neutrophils # 8.5 K/mcL (1.6-8.9); Platelet Count 275 K/mcL (140-400); Red Blood Count 4.75 M/mcL (4.19-5.50); Segmented Neutrophils % 70.9 %
[2018-07-27 04:35] LABS: Alanine Aminotransferase 20 Units/L (7-52); Albumin 3.6 g/dL (3.5-5.7); Alkaline Phosphatase 57 Units/L (34-104); Aspartate Amino Transferase 23 Units/L (13-39); BUN/Creatinine Ratio 15 (6-26); Bilirubin,Total 0.6 mg/dL (0.3-1.0); Blood Urea Nitrogen 13 mg/dL (6-20); Calcium 8.9 mg/dL (8.6-10.3); Carbon Dioxide 18 mEq/L (23-29); Chloride 103 mEq/L (98-107); Globulin 3.5 g/dL (2.4-3.5); Glucose 95 mg/dL (70-105); Osmolality,Calculated 284 (280-300); Potassium 3.8 mEq/L (3.5-5.1); Sodium 137 mEq/L (136-145); Total Protein 7.1 g/dL (6.4-8.9); eGFR For Non-African Americans > 60 (> 60)
[2018-07-27 04:55] LABS: Platelet Estimate Normal (Normal)
[2018-07-27] MEDS: *HR* Heparin 5,000 UNIT/ML VIAL SQ SCH ×3 (05:16→20:03)
[2018-07-27] MEDS: Pantoprazole 40 MG VIAL IVP SCH ×2 (05:16→18:27)
[2018-07-27 08:49] LABS: ANA IgG by ELISA NONE DETECTED (None Detected); F-Actin (sm muscle) Ab IgG 6 Units (0-19); Immunoglobulin A (CELIAC) 358 mg/dL (68-408)
[2018-07-27 08:50] LABS: Saccharomyces cerevisiae IgA 14.8 Units (0.0-24.9); Tissue Transglutaminase IgA 1 U/mL (0-3)
[2018-07-27] MEDS: Metoprolol 100 MG TABLET PO SCH ×2 (09:25→20:03)
[2018-07-27] MEDS: Lisinopril 20 MG TABLET PO SCH ×2 (09:25→20:03)
--- NOTE | 2018-07-27 12:40 | Internal Med Progress Note ---
Hospitalist Progress Note - Encounter Date of Encounter: 07/27/18 Time of Encounter: 10:10 - Subjective Interval History: awake, sitting in chair, pain cont to be better when sitting in chair, none currently, no n/v or back pain. no chow, vision changes cp or pressure. will trial clears today and report any sxs - Exam Vitals: Temp Pulse Resp BP Pulse Ox 98.2 F 83 16 131/76 96 07/27/18 10:39 07/27/18 10:39 07/27/18 10:39 07/27/18 10:39 07/27/18 10:39 Exam: General: awake, alert, appears stated age, obese Cardiovascular:regular rate and rhythm, normal S1 & S2, no lower extremity edema Lungs:Normal breath sounds, no wheezes, or crackles. Normal respiratory effort on ra Abdomen:Soft, non-tender, non-distended, + bowel sounds Neurological: AAOx3 Skin:Normal color, no jaundice - Assessment and Plan (1) Acute pancreatitis Current Visit: Yes Status: Acute Assessment and Plan: First episode pancreatitis Denies etoh use, new meds, gallstone history or high triglycerides CT a/p with acute pancreatitis no pseudocyst, no necrosis noted RUQ US--HM and steatosis ducts normal no stones lipids, etoh level--unremarkable Lipase down trending lipase 800s with improved sxs today -cont MIVF -clear liquids and monitor lipase and for sxs -prn pain medication IV, prn anti emetics -gi consulted and autoimmune work up pending -he will have to have his PCP in [place] refer him to GI and obtain [facility] records at discharge (2) Hypertension Current Visit: Yes Status: Acute Assessment and Plan: Uncontrolled, likely confounded by pain and needing to hold oral home meds initially Overall improved with home med regimen and pain control -cont home BB and ACEI, prn hydralazine -prn pain control -will require fu with pcp on dc (3) Leukocytosis Current Visit: Yes Status: Acute Assessment and Plan: WBC 14 on admission, down trending CT A/P with pancreatitis and no other infectious etiology noted for abd pain, n/v UA without infection CXR neg Likely stress reaction -if develops fever will check bl cxs (4) Tachycardia Current Visit: Yes Status: Resolved Assessment and Plan: Sinus tachycardia likely related to pain, intermittent, currently resolved EKG with NSR, tWI III and Avf, no prior to compare given elevated BPs and TWIs on ekg trops were trended and negative on admission- pt without cp, pressure, sob or palpitations - home dosing BB 200 mg BID, cont pain control, monitor electrolytes -cont tele (5) Tobacco dependence Current Visit: Yes Status: Acute Assessment and Plan: cessation education patch as needed (6) Hyperglycemia Current Visit: Yes Status: Acute Assessment and Plan: No history of DM A1C--8.1 Likely DM , possibly complicated by pancreatitis -SSI and accu checks, prn hypoglycemics -diet and lifestyle modification education provided, will need pcp fu (7) Morbid obesity with BMI of 40.0-44.9, adult Current Visit: Yes Status: Acute Assessment and Plan: diet and lifestyle modifications (8) Chronic diarrhea Current Visit: Yes Status: Acute Assessment and Plan: Stable and at baseline -cont home prn imodium DVT Prophylaxis: hep sq - Time Spent with Patient Total time spent is greater than 50% in coordination of care (as documented) at patient's floor/unit and/or counseling patient: Internal Medicine: Result - Labs CBC & Chem 7: 07/27/18 03:49 07/27/18 03:49 Labs: Short CBC 07/27/18 Range/Units 03:49 WBC 12.0 H (4.3-11.1) K/mcL Hgb 13.4 (12.9-16.9) g/dL Hct 41.1 (37.5-50.1) % Plt Count 275 (140-400) K/mcL Neutrophils # 8.5 (1.6-8.9) K/mcL BMP 07/27/18 03:49 Sodium 137 Potassium 3.8 Chloride 103 Carbon Dioxide 18 L BUN 13 Creatinine 0.89 Glucose 95 Calcium 8.9 Liver Function 07/27/18 Range/Units 03:49 Total Bilirubin 0.6 (0.3-1.0) mg/dL AST 23 (13-39) Units/L ALT 20 (7-52) Units/L Alkaline Phosphatase 57 (34-104) Units/L Albumin 3.6 (3.5-5.7) g/dL - ABG Interpretation ABG results: PT/INR, D-dimer PT 13.5 Seconds (9.4-12.1) H 07/24/18 12:37 Consult Discharge Plan - Plan Referrals: NONE,PCP [Primary Care Provider] - (1) Acute pancreatitis Qualifiers: Pancreatitis type: unspecified pancreatitis type Acute pancreatitis complica tion: no infection or necrosis Qualified Code(s): K85.90 - Acute pancreatitis without necrosis or infection, unspecified (2) Hypertension Qualifiers: Hypertension type: essential hypertension Qualified Code(s): I10 - Essential (primary) hypertension (3) Leukocytosis Qualifiers: Leukocytosis type: unspecified Qualified Code(s): D72.829 - Elevated white blood cell count, unspecified
[2018-07-28] MEDS: *HR* FentaNYL (PF) 100 MCG/2 ML VIAL IVP PRN ×2 (00:41→23:52)
[2018-07-28] MEDS: Melatonin 3 MG TABLET PO PRN ×2 (00:44→23:53)
[2018-07-28] MEDS: 0.9 % Sodium Chloride 1,000 ML IVC SCH ×3 (01:40→16:58)
[2018-07-28] MEDS: *HR* Heparin 5,000 UNIT/ML VIAL SQ SCH ×3 (05:03→21:26)
[2018-07-28] MEDS: Pantoprazole 40 MG VIAL IVP SCH ×2 (05:03→16:55)
[2018-07-28 07:48] LABS: Amylase 141 Units/L (29-103); Lipase 928 Units/L (11-82)
[2018-07-28] MEDS: Insulin LISPRO 300 UNITS/3 ML VIAL SQ SCH ×4 (08:19→21:25)
[2018-07-28] MEDS: Lisinopril 20 MG TABLET PO SCH ×2 (08:23→21:26)
[2018-07-28] MEDS: Metoprolol 100 MG TABLET PO SCH ×2 (08:23→21:26)
[2018-07-28] MEDS ORDERED: Ringers Solution, Lactated 500 ML IVC ONE (09:21)
--- NOTE | 2018-07-28 13:48 | Internal Med Progress Note ---
Hospitalist Progress Note - Encounter Date of Encounter: 07/28/18 Time of Encounter: 10:25 - Subjective Interval History: awake, rn at bedside. no abd pain, n/v today. no fevers or chills.. updated to lipase and todays plan. - Exam Vitals: Temp Pulse Resp BP Pulse Ox 98.1 F 73 16 136/85 97 07/28/18 10:39 07/28/18 10:39 07/28/18 10:39 07/28/18 10:39 07/28/18 10:39 Exam: General: awake, alert, appears stated age, obese Cardiovascular:regular rate and rhythm, normal S1 & S2, no lower extremity edema Lungs:Normal breath sounds, Normal respiratory effort on ra Abdomen:Soft, non-tender, non-distended, + bowel sounds Neurological: AAOx3 Skin:Normal color, no jaundice - Assessment and Plan (1) Acute pancreatitis Current Visit: Yes Status: Acute Assessment and Plan: First episode pancreatitis Denies etoh use, new meds, gallstone history or high triglycerides CT a/p with acute pancreatitis no pseudocyst, no necrosis noted RUQ US--HM and steatosis ducts normal no stones lipids, etoh level--unremarkable Lipase down trended, attempted clears 07/27 and now up trending lipase 90ss and no sxs -cont MIVF, small bolus given -npo with ice chips -repeat CT a/p today -prn pain medication IV, prn anti emetics -gi consulted and autoimmune work up pending -he will have to have his PCP in [place] refer him to GI and obtain [facility] records at discharge (2) Hypertension Current Visit: Yes Status: Acute Assessment and Plan: Uncontrolled,now stable likely confounded by pain and needing to hold oral home meds initially Overall improved with home med regimen and pain control -cont home BB and ACEI, prn hydralazine -prn pain control -will require fu with pcp on dc (3) Leukocytosis Current Visit: Yes Status: Acute Assessment and Plan: WBC 14 on admission, down trending CT A/P with pancreatitis and no other infectious etiology noted for abd pain, n/v UA without infection CXR neg Likely stress reaction -if develops fever will check bl cxs -check cbc in am (4) Tachycardia Current Visit: Yes Status: Resolved Assessment and Plan: Sinus tachycardia likely related to pain, intermittent, currently resolved EKG with NSR, tWI III and Avf, no prior to compare given elevated BPs and TWIs on ekg trops were trended and negative on admission- pt without cp, pressure, sob or palpitations - home dosing BB 200 mg BID, cont pain control, monitor electrolytes -cont tele (5) Tobacco dependence Current Visit: Yes Status: Acute Assessment and Plan: cessation education patch as needed (6) Hyperglycemia Current Visit: Yes Status: Acute Assessment and Plan: No history of DM A1C--8.1 Likely DM , possibly complicated by pancreatitis -SSI and accu checks, prn hypoglycemics -diet and lifestyle modification education provided, will need pcp fu (7) Morbid obesity with BMI of 40.0-44.9, adult Current Visit: Yes Status: Acute Assessment and Plan: diet and lifestyle modifications (8) Chronic diarrhea Current Visit: Yes Status: Acute Assessment and Plan: Stable and at baseline -cont home prn imodium DVT Prophylaxis: hep sq - Time Spent with Patient Total time spent is greater than 50% in coordination of care (as documented) at patient's floor/unit and/or counseling patient: Internal Medicine: Result - Labs CBC & Chem 7: 07/27/18 03:49 07/27/18 03:49 - ABG Interpretation ABG results: PT/INR, D-dimer PT 13.5 Seconds (9.4-12.1) H 07/24/18 12:37 - Impressions Impressions Abdomen/Pelvis CT 07/28/18 12:15 IMPRESSION: Hazy injection of the fat surrounding the pancreas, similar to prior, suggesting underlying pancreatitis. No developing pancreatic pseudocyst. A few small surrounding lymph nodes are seen, likely reactive Fatty liver and nonobstructing left renal calculus Scattered areas of colonic wall thickening are seen, likely due to the partially contracted state of the colon, in the absence of clinical signs of colitis D/ / Bartolome Minaya MD / Bartolome Minaya MD Interpreting Provider: Bartolome Minaya MD Consult Discharge Plan - Plan Referrals: NONE,PCP [Primary Care Provider] - (1) Acute pancreatitis Qualifiers: Pancreatitis type: unspecified pancreatitis type Acute pancreatitis complication: no infection or necrosis Qualified Code(s): K85.90 - Acute pancreatitis without necrosis or infection, unspecified (2) Hypertension Qualifiers: Hypertension type: essential hypertension Qualified Code(s): I10 - Essential (primary) hypertension (3) Leukocytosis Qualifiers: Leukocytosis type: unspecified Qualified Code(s): D72.829 - Elevated white blood cell count, unspecified
[2018-07-28 14:46] LABS: A1A SZ Specimen WHOLE BLOOD; Alpha-1-Antitrypsin S Allele NEGATIVE; Alpha-1-Antitrypsin Z Allele NEGATIVE
[2018-07-29] MEDS: 0.9 % Sodium Chloride 1,000 ML IVC SCH ×2 (01:44→09:56)
[2018-07-29] MEDS: *HR* Heparin 5,000 UNIT/ML VIAL SQ SCH ×3 (05:14→22:21)
[2018-07-29] MEDS: Pantoprazole 40 MG VIAL IVP SCH ×2 (05:14→18:52)
[2018-07-29 07:34] LABS: Basophils % 0.4 %; Eosinophils # 0.2 K/mcL (0.0-0.6); Eosinophils % 2.2 %; Hematocrit 40.4 % (37.5-50.1); Hemoglobin 13.3 g/dL (12.9-16.9); Immature Granulocytes % 0.3 % (0-4); Lymphocytes # 2.2 K/mcL (0.6-4.6); Lymphocytes % 22.9 %; Mean Corpuscular HGB Conc 32.9 g/dL (31.6-35.5); Mean Corpuscular Hemoglobin 28.1 pg (28.0-33.3); Mean Corpuscular Volume 85.2 fL (83.0-100.0); Mean Platelet Volume 11.2 fL (9.4-12.4); Monocytes # 0.6 K/mcL (0.0-1.3); Monocytes % 6.2 %; Neutrophils # 6.6 K/mcL (1.6-8.9); Platelet Count 282 K/mcL (140-400); Red Blood Count 4.74 M/mcL (4.19-5.50); Red Cell Distribution Width 12.9 % (11.5-14.5)
[2018-07-29 07:55] LABS: BUN/Creatinine Ratio 10 (6-26); Blood Urea Nitrogen 8 mg/dL (6-20); Carbon Dioxide 22 mEq/L (23-29); Chloride 102 mEq/L (98-107); Glucose 105 mg/dL (70-105); Osmolality,Calculated 289 (280-300); Potassium 3.8 mEq/L (3.5-5.1); Sodium 140 mEq/L (136-145); eGFR For Non-African Americans > 60 (> 60)
[2018-07-29] MEDS: Metoprolol 100 MG TABLET PO SCH ×2 (09:02→22:20)
[2018-07-29] MEDS: Lisinopril 20 MG TABLET PO SCH ×2 (09:02→22:21)
[2018-07-29] MEDS: Insulin LISPRO 300 UNITS/3 ML VIAL SQ SCH ×4 (09:04→22:09)
--- NOTE | 2018-07-29 10:12 | Internal Med Progress Note ---
Hospitalist Progress Note - Encounter Date of Encounter: 07/29/18 Time of Encounter: 10:00 - Subjective Interval History: No acute events overnight - Exam Vitals: Temp Pulse Resp BP Pulse Ox 98 F 86 19 143/90 97 07/29/18 05:18 07/29/18 05:18 07/29/18 05:18 07/29/18 05:18 07/29/18 05:18 Exam: General: awake, alert, appears stated age, obese Cardiovascular:regular rate and rhythm, normal S1 & S2, no lower extremity edema Lungs:Normal breath sounds, Normal respiratory effort on ra Abdomen:Soft, non-tender, non-distended, + bowel sounds Neurological: AAOx3 Skin:Normal color, no jaundice - Assessment and Plan (1) Acute pancreatitis Current Visit: Yes Status: Acute Assessment and Plan: Pt has clinically improved and says nausea and vomiting have resolved Will advance to diabetic diet today and plan for discharge in am if he tolerates Autoimmune pancreatitis work up unremarkable (2) Hypertension Current Visit: Yes Status: Acute Assessment and Plan: Uncontrolled,now stable likely confounded by pain and needing to hold oral home meds initially Overall improved with home med regimen and pain control -cont home BB and ACEI, prn hydralazine -prn pain control -will require fu with pcp on dc (3) Leukocytosis Current Visit: Yes Status: Acute Assessment and Plan: WBC 14 on admission, down trending CT A/P with pancreatitis and no other infectious etiology noted for abd pain, n/v UA without infection CXR neg Likely stress reaction -if develops fever will check bl cxs -check cbc in am (4) Tachycardia Current Visit: Yes Status: Resolved Assessment and Plan: Sinus tachycardia likely related to pain, intermittent, currently resolved EKG with NSR, tWI III and Avf, no prior to compare given elevated BPs and TWIs on ekg trops were trended and negative on admission- pt without cp, pressure, sob or palpitations - home dosing BB 200 mg BID, cont pain control, monitor electrolytes -cont tele (5) Tobacco dependence Current Visit: Yes Status: Acute Assessment and Plan: cessation education patch as needed (6) Hyperglycemia Current Visit: Yes Status: Acute Assessment and Plan: No history of DM A1C--8.1 Likely DM , possibly complicated by pancreatitis -SSI and accu checks, prn hypoglycemics -diet and lifestyle modification education provided, will need pcp fu (7) Morbid obesity with BMI of 40.0-44.9, adult Current Visit: Yes Status: Acute Assessment and Plan: diet and lifestyle modifications (8) Chronic diarrhea Current Visit: Yes Status: Acute Assessment and Plan: Stable and at baseline -cont home prn imodium DVT Prophylaxis: hep sq - Time Spent with Patient Total time spent is greater than 50% in coordination of care (as documented) at patient's floor/unit and/or counseling patient: Internal Medicine: Result - Labs CBC & Chem 7: 07/29/18 06:18 07/29/18 06:18 Labs: Short CBC 07/29/18 Range/Units 06:18 WBC 9.7 (4.3-11.1) K/mcL Hgb 13.3 (12.9-16.9) g/dL Hct 40.4 (37.5-50.1) % Plt Count 282 (140-400) K/mcL Neutrophils # 6.6 (1.6-8.9) K/mcL BMP 07/29/18 06:18 Sodium 140 Potassium 3.8 Chloride 102 Carbon Dioxide 22 L BUN 8 Creatinine 0.83 Glucose 105 Calcium 9.0 - ABG Interpretation ABG results: PT/INR, D-dimer PT 13.5 Seconds (9.4-12.1) H 07/24/18 12:37 - Impressions Impressions Abdomen/Pelvis CT 07/28/18 12:15 IMPRESSION: Hazy injection of the fat surrounding the pancreas, similar to prior, suggesting underlying pancreatitis. No developing pancreatic pseudocyst. A few small surrounding lymph nodes are seen, likely reactive Fatty liver and nonobstructing left renal calculus Scattered areas of colonic wall thickening are seen, likely due to the partially contracted state of the colon, in the absence of clinical signs of colitis D/ / Bartolome Minaya MD / Bartolome Minaya MD Interpreting Provider: Bartolome Minaya MD Consult Discharge Plan - Plan Referrals: NONE,PCP [Primary Care Provider] - (1) Acute pancreatitis Qualifiers: Pancreatitis type: unspecified pancreatitis type Acute pancreatitis complication: no infection or necrosis Qualified Code(s): K85.90 - Acute pancreatitis without necrosis or infection, unspecified (2) Hypertension Qualifiers: Hypertension type: essential hypertension Qualified Code(s): I10 - Essential (primary) hypertension (3) Leukocytosis Qualifiers: Leukocytosis type: unspecified Qualified Code(s): D72.829 - Elevated white blood cell count, unspecified
[2018-07-29] MEDS ORDERED: *HR* OxyCODONE Immed Rel 5 MG TABLET PO PRN (11:12)
[2018-07-30] MEDS: Melatonin 3 MG TABLET PO PRN (01:07)
[2018-07-30] MEDS: Pantoprazole 40 MG VIAL IVP SCH (06:06)
[2018-07-30] MEDS: *HR* Heparin 5,000 UNIT/ML VIAL SQ SCH (06:07)
[2018-07-30 07:32] VITALS: BP 153/88
[2018-07-30] MEDS: Insulin LISPRO 300 UNITS/3 ML VIAL SQ SCH (07:58)
[2018-07-30] MEDS: Lisinopril 20 MG TABLET PO SCH (08:39)
[2018-07-30] MEDS: Metoprolol 100 MG TABLET PO SCH (08:39)
--- NOTE | 2018-07-30 09:29 | Discharge Summary ---
Date of Encounter: 07/30/18 Time of Encounter: 09:30 - Discharge Diagnosis (1) Acute pancreatitis Priority: Primary Status: Acute Assessment and Plan: 52 year old male pmhx htn , and tobacco dependence who presented to ED with e pigastric pain, nausea and vomiting. He admits to epigastric pain for the past 3-4 days. Nausea and vomiting worse after he eats. He reports frequent loose stools which is normal for him. He denies any melena or hematochezia. He reports family history of father with pancreatitis. Lipase >1800, CT scan with acute pancreatitis. He denies etoh use, abnormal lipid panels in past, no new meds and no history of gallstones. He was assessed with acute pancreatitis and kept NPO, given IV fluids and pain control. Pt has clinically improved and says nausea and vomiting have resolved. He was advanced to a diabetic diet which he tolerated. Autoimmune pancreatitis work up was negative. He was also found to have a newly diagnosed diabetes with an A1c of 8.1. He was started on metformin and counseled regarding lifestyle modifications. He was discharged in a stable condition. 35 minutes was spent discharging this patient Qualifiers: Pancreatitis type: unspecified pancreatitis type Acute pancreatitis complication: no infection or necrosis Qualified Code(s): K85.90 - Acute pancreatitis without necrosis or infection, unspecified (2) Hypertension Priority: Primary Status: Acute Qualifiers: Hypertension type: essential hypertension Qualified Code(s): I10 - Essential (primary) hypertension (3) Leukocytosis Priority: Primary Status: Acute Qualifiers: Leukocytosis type: unspecified Qualified Code(s): D72.829 - Elevated white blood cell count, unspecified (4) Tachycardia Priority: Primary Status: Resolved (5) Tobacco dependence Priority: Primary Status: Acute (6) Hyperglycemia Priority: Primary Status: Acute (7) Morbid obesity with BMI of 40.0-44.9, adult Priority: Primary Status: Acute (8) Chronic diarrhea Priority: Primary Status: Acute Hospital course: Mr. Decker is a 52 year old male - Time Spent with Patient Total time spent providing and/or coordinating discharge services: - Discharge Medications Prescriptions: New metFORMIN [Glucophage] 500 mg PO BIDWM #60 tablet Blood-Glucose Meter [Relion All-in-One] 1 each MC TID 30 Days #1 kit Continue Metoprolol [Lopressor] 200 mg PO BID Lisinopril [Zestril] 40 mg PO BID Home Medications: Lisinopril [Zestril] 40 mg PO BID 07/24/18 [History] Metoprolol [Lopressor] 200 mg PO BID 07/24/18 [History] Blood-Glucose Meter [Relion All-in-One] 1 each MC TID 30 Days #1 kit 07/30/18 [Rx] metFORMIN [Glucophage] 500 mg PO BIDWM #60 tablet 07/30/18 [Rx] Allergies/Adverse Reactions: Allergy/AdvReac Type Severity Reaction Status Date / Time No Known Allergies Allergy Verified 07/23/18 23:47 Date of admission: 07/24/18 08:48 Primary care physician: PCP NONE Consults: 07/24/18 04:55 Consult to Home Health Care Case Manager [CONS] Routine Reason for SW Consult: Need help with paying for semi parking. 07/24/18 11:15 Consult to Gastroenterology [CONS] Routine Consulting Provider: Gastroenterology Ama Reason for Consult: pancreatitis, first episode, uk etiology, RUQ w hepatomegaly and steatosis, eval for further work up/intervention, thank you Call Completed: Yes - Constitutional Vitals: Temp Pulse Resp BP Pulse Ox 97.9 F 81 16 153/88 95 07/30/18 07:29 07/30/18 07:29 07/30/18 07:29 07/30/18 07:29 07/30/18 07:29 Exam: General: awake, alert, appears stated age, obese Cardiovascular:regular rate and rhythm, normal S1 & S2, no lower extremity edema Lungs:Normal breath sounds, Normal respiratory effort on ra Abdomen:Soft, non-tender, non-distended, + bowel sounds Neurological: AAOx3 Skin:Normal color, no jaundice - Patient Status Disposition: Home, Self-Care Condition: Undetermined - Discharge Instructions Instructions: Pancreatitis (DC), Diabetes Mellitus Type 2 in Adults (DC), Chronic Hypertension (DC) Follow Up With: NONE,PCP [Primary Care Provider] - (Patient from [place] and he would like to find his own primary care physician. Thank you)
[2018-07-30 09:38] LABS: Alpha-1-Antitrypsin 186 mg/dL (90-200)
[2018-07-30 10:07] LABS: Basophils % 0.4 %; Eosinophils # 0.2 K/mcL (0.0-0.6); Eosinophils % 2.5 %; Hematocrit 41.5 % (37.5-50.1); Hemoglobin 13.7 g/dL (12.9-16.9); Immature Granulocytes % 0.4 % (0-4); Lymphocytes # 2.3 K/mcL (0.6-4.6); Lymphocytes % 23.7 %; Mean Corpuscular Volume 84.7 fL (83.0-100.0); Monocytes # 0.6 K/mcL (0.0-1.3); Monocytes % 5.9 %; Neutrophils # 6.5 K/mcL (1.6-8.9); Platelet Count 312 K/mcL (140-400); Red Cell Distribution Width 13.1 % (11.5-14.5); Segmented Neutrophils % 67.1 %
[2018-07-30 10:47] LABS: Amylase 117 Units/L (29-103); BUN/Creatinine Ratio 11 (6-26); Blood Urea Nitrogen 12 mg/dL (6-20); Carbon Dioxide 27 mEq/L (23-29); Chloride 102 mEq/L (98-107); Glucose 164 mg/dL (70-105); Lipase 1156 Units/L (11-82); Magnesium 1.8 mg/dL (1.6-2.6); Osmolality,Calculated 289 (280-300); Phosphorous 4.1 mg/dL (2.7-4.5); Potassium 3.6 mEq/L (3.5-5.1); Sodium 138 mEq/L (136-145); eGFR For Non-African Americans > 60 (> 60)
== END 2018-07-30 11:43 | disposition home or self-care (01) | DRG 439 ==
LOC: 2SOUTHHOLD 22:31 → EMEROOARM 22:31 → 2SOUTHHOLD 07-24 04:10 → SUATTDRO 07-24 08:48 → 3ANU 07-24 17:56
PROVIDERS: ADMIT Internal Medicine; ATTEND Student in an Organized Health Care Education/Training Program